=== PATIENT | female | born 1995 | race Caucasian/White ===

== ENCOUNTER 2023-01-23 00:28 | Emergency (ER) | payer BC, SELFPAY ==
[2023-01-23 00:32] VITALS: BP 116/94; PULSE 95; RESP 18; TEMP 36.7; O2SAT 99; BMI 26.5
--- NOTE | 2023-01-23 00:38 | ED.ABDPAIN1 ---
HPI - Abdominal Pain General Chief Complaint: Abdominal Pain Stated Complaint: ABDOMINAL PAIN Time Seen by Provider: 01/23/23 00:38 Mode of arrival: walk-in History of Present Illness HPI narrative: Presents to emergency department complaining of right abdomen and flank pain. Patient states she had her menses for 2 days. Slightly heavier than normal. She is not passing any clots. She states the pain is sharp radiates from her right lower quadrant to the right flank. She denies any trauma. She denies any vaginal discharge. She denies any hematuria, dysuria. She denies any fever, chills, cough, chest, shortness of breath. She has taken [id number] anti-inflammatories without any relief. Patient denies any dizziness, lightheadedness. She denies any nausea, vomiting, or diarrhea. Related Data Home Medications Medication Instructions Recorded Confirmed No Known Home Medications 01/23/23 01/23/23 Previous Rx's Medication Instructions Recorded ketorolac 10 mg tablet 10 mg PO Q8H PRN pain 1 day #14 01/23/23 tabs Allergies Allergy/AdvReac Type Severity Reaction Status Date / Time No Known Drug Allergies Allergy Verified 01/23/23 00:36 Review of Systems ROS Status of ROS 10 or more systems reviewed and unremarkable except as noted in history and below [facility] Social History Smoking status: Never smoker Exam Narrative Exam Narrative: Nurses notes and vital signs reviewed and patient is not hypoxic. General: Nontoxic, Well-appearing and in no apparent distress. Skin: Warm, dry, no pallor noted. No Rash Head: Normocephalic, atraumatic. Neck: Supple, non-tender. Eye: Pupils are equal, round and EOMI. No scleral icterus. Ears, Nose, Mouth, and Throat: TM clear, no posterior oropharynx erythema or nasal mucosal hypertrophy, uvula is mid-line Oral mucosa is moist Cardiovascular: Regular Rate and Rhythm without murmur, gallop or rub. Respiratory: No accessory muscle use or respiratory distress. Lungs are clear to auscultation, no wheezing, rales or rhonchi Chest Wall: no tenderness Back: No midline thoracic or lumbar vertebral tenderness. No CVA tenderness Musculoskeletal: normal ROM, no calf or popliteal tenderness, no lower extremity edema/swelling GI: Abdomen is soft, non-distended. Normal bowel sounds. No masses appreciated. Diffuse tenderness to palpationTo the right upper quadrant and right lower quadrant and left lower quadrant and left upper quadrant. No rebound, guarding, or rigidity noted. Neurological: A&O x4. No cranial nerve dysfunction observed. No truncal ataxia. Moves all extremities. Sensation intact. Psychiatric: Cooperative and interactive. Normal mood and affect. Constitutional Vital Signs, click to edit/add: Last Vital Signs Temp 98.1 F 01/23/23 00:32 Pulse 95 H 01/23/23 00:32 Resp 18 01/23/23 00:32 BP 116/94 H 01/23/23 00:32 Pulse Ox 99 01/23/23 00:32 O2 Del Method Room Air 01/23/23 00:32 Course Vital Signs Vital signs: Vital Signs Temperature 98.1 F 01/23/23 00:32 Pulse Rate 95 H 01/23/23 00:32 Respiratory Rate 18 01/23/23 00:32 Blood Pressure 116/94 H 01/23/23 00:32 Pulse Oximetry 99 01/23/23 00:32 Oxygen Delivery Method Room Air 01/23/23 00:32 Temperature 98.1 F 01/23/23 00:32 Pulse Rate 95 H 01/23/23 00:32 Respiratory Rate 18 01/23/23 00:32 Blood Pressure 116/94 H 01/23/23 00:32 Pulse Oximetry 99 01/23/23 00:32 Oxygen Delivery Method Room Air 01/23/23 00:32 MDM - Abdominal Pain MDM Narrative Medical decision making narrative: Patient had an IV established given IV fluids, and Toradol. test is negative. Lab studies are unremarkable. Patient's pain completely resolved after Toradol. Results were discussed with patient. Radiologist called to advise right adnexal questionable cysts. He advised ultrasound. Ultrasound came in and there was arterial flow to the ovaries. Patient has been feeling better. No longer has pain. She'll follow-up with Christophe in the morning. Given a prescription for Toradol. At this time the patient is without objective evidence of an acute process requiring hospitalization or inpatient management. The patient has remained hemodynamically stable. No additional indication for emergent studies at this time. I answered all questions. Discussed discharge instructions including standard anticipatory guidance and what should prompt a return to the emergency department, including if they get worse are not getting better or develops any new or concerning symptoms. I've given them specific time frame in which to follow-up, and who to follow-up with. The patient demonstrates understanding. Patient is nontoxic and stable for discharge with outpatient follow-up. This note was created with the assistance of a speech recognition program. Although the intention is to generate documents that actually reflects the content of the visit, no guarantees can be provided that every mistake has been identified and corrected by editing. Differential Diagnosis Differential diagnosis: Likely abdominal pain, acute appendicitis and endometriosis Lab Data Attestation: I reviewed the patient's lab results. Labs: Lab Results 01/23/23 Range/Units 01:10 WBC 6.1 (4.0-11.0) 10^3/uL RBC 4.27 (4.20-5.40) 10^6/uL Hgb 12.0 (12.0-16.0) g/dL Hct 36.3 (36.0-48.0) % MCV 85.0 (81.0-99.0) fL MCH 28.1 (26.7-34.0) pg MCHC 33.1 (29.9-35.2) g/dL RDW 13.4 (11.0-15.0) % Plt Count 281 (150-450) 10^3/uL MPV 9.9 (9.5-13.5) fL Neut % (Auto) 56.6 (43.0-75.0) % Lymph % (Auto) 28.5 (20.5-60.0) % [place] % (Auto) 10.8 (1.7-12.0) % Eos % (Auto) 3.3 (0.9-7.0) % Baso % (Auto) 0.5 (0.2-2.0) % Neut # (Auto) 3.5 (1.4-6.5) 10^3/uL Lymph # (Auto) 1.8 (1.2-3.8) 10^3/uL [place] # (Auto) 0.7 (0.3-0.8) 10^3/uL Eos # (Auto) 0.2 (0.0-0.7) 10^3/uL Baso # (Auto) 0.0 (0.0-0.1) 10^3/uL Abs Immat Gran (auto) 0.02 (0.00-0.03) 10^3/uL Imm/Tot Granulo (auto) 0.3 (0.0-0.5) % Sodium 141 (136-145) mmol/L Potassium 3.9 (3.5-5.1) mmol/L Chloride 106 (98-107) mmol/L Carbon Dioxide 26.3 (21.0-32.0) mmol/L Anion Gap 12.6 BUN 17.0 (7.0-18.0) mg/dL Creatinine 0.86 (0.55-1.02) mg/dL Est GFR ( Amer) >60 (>=60) Est GFR (Non-Af Amer) >60 (>=60) BUN/Creatinine Ratio 19.8 Glucose 103 (74-106) mg/dL Calcium 9.1 (8.5-10.1) mg/dL Total Bilirubin 0.4 (0.2-1.0) mg/dL AST 12 L (15-37) U/L ALT 8 L (14-59) U/L Alkaline Phosphatase 52 (46-116) U/L Total Protein 7.6 (6.4-8.2) g/dL Albumin 3.7 (3.4-5.0) g/dL Globulin 3.9 g/dL Albumin/Globulin Ratio 0.9 Lipase 53.0 L (73.0-393.0) U/L Urine Color Lt. yellow (YELLOW) Urine Clarity Clear (CLEAR) Urine pH 8.0 (5.0-9.0) Ur Specific [place] 1.010 (1.005-1.025) Urine Protein Negative (NEG/TRACE) mg/dL Urine Glucose (UA) Negative (NEGATIVE) mg/dL Urine Ketones Negative (NEGATIVE) mg/dL Urine Occult Blood Large A (NEGATIVE) Urine Nitrite Negative (NEGATIVE) Urine Bilirubin Negative (NEGATIVE) Urine Urobilinogen 0.2 (0.2-1.0) EU/dL Ur Leukocyte Esterase Negative (NEGATIVE) Urine RBC 10-20 A (0-2) #/HPF Urine WBC None seen (NONE SEEN) #/HPF Ur Squamous Epith Cells Few A (NONE/RARE) #/LPF Urine Crystals Seen A (None Seen) #/HPF Amorphous Sediment Moderate Urine Bacteria Small A (NONE SEEN) #/HPF Urine Casts None seen (NONE SEEN) #/LPF Urine Mucus None seen (NONE SEEN) Ur Culture Indicated? Yes Urine HCG, Qual Negative (NEGATIVE) Discharge Plan Discharge Chief Complaint: Abdominal Pain Clinical Impression: Dysmenorrhea, Abdominal pain Patient Disposition: Home, Self-Care Time of Disposition Decision: 04:42 Condition: Good Mode of Transportation: Private Vehicle Prescriptions / Home Meds: New ketorolac 10 mg tablet 10 mg PO Q8H PRN (Reason: pain) 1 Days Qty: 14 0RF No Action No Known Home Medications Instructions: Dysmenorrhea (ED), Abdominal Pain (ED) Stand Alone Forms: Portal Instructions Referrals: Zafar Saeed DO [Physician] - 1 week
[2023-01-23 01:20] LABS: Basophils Percent Auto 0.5 % (0.2-2.0); Eosinophils Absolute Auto 0.2 10^3/uL (0.0-0.7); Eosinophils Percent Auto 3.3 % (0.9-7.0); Hematocrit 36.3 % (36.0-48.0); Immature Granulocytes Abs Auto 0.02 10^3/uL (0.00-0.03); Immature Granulocytes Pct Auto 0.3 % (0.0-0.5); Lymphocytes Absolute Auto 1.8 10^3/uL (1.2-3.8); Lymphocytes Percent Auto 28.5 % (20.5-60.0); Mean Corpuscular HGB Conc 33.1 g/dL (29.9-35.2); Mean Corpuscular Hemoglobin 28.1 pg (26.7-34.0); Mean Platelet Volume 9.9 fL (9.5-13.5); Monocytes Absolute Auto 0.7 10^3/uL (0.3-0.8); Monocytes Percent Auto 10.8 % (1.7-12.0); Neutrophils Absolute Auto 3.5 10^3/uL (1.4-6.5); Neutrophils Percent Auto 56.6 % (43.0-75.0); Platelet Count 281 10^3/uL (150-450); Red Blood Count 4.27 10^6/uL (4.20-5.40); Red Cell Distribution Width 13.4 % (11.0-15.0); White Blood Count 6.1 10^3/uL (4.0-11.0)
[2023-01-23 01:21] LABS: Bilirubin Urine NEGATIVE (NEGATIVE); Blood Urine LARGE (NEGATIVE); Clarity Urine CLEAR (CLEAR); Color Urine LT. YELLOW (YELLOW); Glucose Urine UA NEGATIVE (NEGATIVE); Ketones Urine NEGATIVE (NEGATIVE); Leukocyte Esterase Urine NEGATIVE (NEGATIVE); Nitrite Urine NEGATIVE (NEGATIVE); Protein Urine NEGATIVE (NEG/TRACE); Urobilinogen Urine 0.2 EU/dL (0.2-1.0)
[2023-01-23 01:23] LABS: HCG Qualitative Urine* NEGATIVE (NEGATIVE); Urine Microscopic Indicated YES
[2023-01-23 01:31] LABS: Bacteria Urine SMALL #/HPF (NONE SEEN); Crystals Seen? Seen #/HPF (None Seen); Mucus Urine NONE SEEN (NONE SEEN); Squamous Epithelial Cell Urine FEW #/LPF (NONE/RARE); WBC Urine NONE SEEN #/HPF (NONE SEEN)
[2023-01-23 01:32] LABS: Amorphous Sediment Urine MODERATE; Cast Seen? NONE SEEN #/LPF (NONE SEEN); Urine Culture Indicated YES
--- NOTE | 2023-01-23 01:34 | CT_ITS ---
The [address] [address] Patient Name: JAMAAL CARPENTER MRN: [id number] date: 1995 Sex: F Assigned Patient Location: ER Current Patient Location: ER Accession/Order Number: [id number] Exam Date: 01/23/2023 01:47 Report Date: 01/23/2023 03:11 At the request of: JASSI DOS SANTOS Procedure: CT abdomen pelvis wo con EXAM: CT abdomen pelvis wo con HISTORY: Right flank pain , lower abdominal pain COMPARISON: None available TECHNIQUE: Multiple axial views CT abdomen pelvis without IV contrast. Coronal and sagittal reformats. FINDINGS: Visualized lung bases and cardiac apex are unremarkable. A 2.1 cm low-density oval solid mass located at the right posterior hepatic dome (image 20 series 3). Gallbladder, pancreas, spleen, adrenal glands, kidneys, and urinary bladder are unremarkable. A 4 mm calcified body at the right lower pelvis (image 107 series 3). The appendix is borderline prominent measuring up to 5.5 mm diameter. No discrete wall thickening or periappendiceal inflammatory stranding. 4.1 cm irregular heterogeneous right adnexal structure (image 95 series 3) posterior to the uterus. Moderate amount of stool and gas within the large bowel. No evidence for small bowel obstruction, large ascites, or free air. No acute bony abnormality. CT/CT abdomen pelvis wo con IMPRESSION: 1. 4.1 cm irregular heterogeneous right adnexal structure (image 95 series 3) posterior to the uterus. Differential includes right adnexal/ovarian cysts with debris, luteal cyst, hemorrhagic cyst, or other ovarian etiology. Correlate clinically. If there is corresponding right pelvic pain, then pelvic sonogram to further evaluate recommended. 2. The appendix is borderline prominent measuring up to 5.5 mm diameter. No discrete wall thickening or periappendiceal inflammatory stranding to suggest appendicitis. 3. A 2.1 cm low-density oval solid mass located at the right posterior hepatic dome (image 20 series 3). Nonemergency multiphase abdomen CT or MRI to evaluate for etiology. 4. A 4 mm calcified body at the right lower pelvis (image 107 series 3) favored to reflect pelvic phlebolith over ureteral stone. No hydronephrosis. Correlate for any hematuria. The first, second, and fourth impression findings communicated to and acknowledged by Dr. Jassi Stahl at approximately 3:06 AM 01/23/2023 by phone. The phone call was made by Dr. Oksana Metzger. Electronically authenticated by: OKSANA METZGER Date: 01/23/2023 03:11
[2023-01-23 01:44] LABS: Alanine Aminotransferase 8 U/L (14-59); Albumin Globulin Ratio 0.9; Albumin Level 3.7 g/dL (3.4-5.0); Alkaline Phosphatase 52 U/L (46-116); Anion Gap 12.6; Aspartate Amino Transferase 12 U/L (15-37); BUN Creatinine Ratio 19.8; Bilirubin Total 0.4 mg/dL (0.2-1.0); Calcium 9.1 mg/dL (8.5-10.1); Carbon Dioxide 26.3 mmol/L (21.0-32.0); Chloride 106 mmol/L (98-107); Estimated GFR (African America >60 (>=60); Estimated GFR (Non-African Ame >60 (>=60); Globulin 3.9 g/dL; Glucose 103 mg/dL (74-106); Potassium 3.9 mmol/L (3.5-5.1); Sodium 141 mmol/L (136-145); Total Protein 7.6 g/dL (6.4-8.2)
[2023-01-23] MEDS: KETOROLAC TROMETHAMINE 30 MG/ML VIAL IVP (01:55)
[2023-01-23] MEDS: 0.9 % SODIUM CHLORIDE 1,000 ML 999 ML IV (01:55)
--- NOTE | 2023-01-23 03:16 | US_ITS ---
The [address] [address] Patient Name: JAMAAL CARPENTER MRN: [id number] date: 1995 Sex: F Assigned Patient Location: ER Current Patient Location: ER Accession/Order Number: [id number] Exam Date: 01/23/2023 04:10 Report Date: 01/23/2023 05:52 At the request of: JASSI DOS SANTOS Procedure: US pelvis w/ transvaginal EXAM: US pelvis w/ transvaginal HISTORY: Pelvic pain; assess for ovarian torsion. COMPARISON: CT abdomen/pelvis dated 01/23/2023. TECHNIQUE: Grayscale and color Doppler transabdominal and transvaginal sonographic imaging of the pelvis in longitudinal and transverse planes. FINDINGS: Uterus: 8.4 x 4.1 x 5.2 cm Right ovary: 2.6 x 3.5 x 4.5 cm Left ovary: 3.9 x 2.0 x 3.4 cm Uterus: Anteverted uterus is normal size. The endometrial stripe is normal thickness measuring 0.4 cm in AP dimension. The myometrial parenchymal echogenicity is unremarkable. There is no myometrial mass lesion. Right ovary: Normal size with normal parenchymal echogenicity. There are follicles within the right ovary. There is a 1.6 x 0.8 x 1.5 cm involuting follicle containing low-level internal echoes within the right ovary. The 1.9 x 1.8 x 2.3 cm isoechoic area containing small follicles and the 0.7 x 0.5 x 0.6 cm slightly hyperechoic area measured within the right ovary are most likely ovarian parenchyma. An arterial waveform tracing was obtained. No venous waveform tracing was obtained. Given this limitation, there are no sonographic findings of right ovarian torsion. The right adnexa region is unremarkable. Left ovary: Normal size with normal parenchymal echogenicity. There are small follicles within the left ovary. An arterial waveform tracing was obtained. No venous waveform tracing was obtained. Given this limitation, there are no sonographic findings of left ovarian torsion. There is a 1.5 x 0.8 x 1.7 cm isoechoic nodule within the left ovary possibly an involuted corpus luteum cyst with diffuse internal echoes. There is no associated vascularity within this. The left adnexa region is unremarkable. Cul-de-sac: There is no free fluid within the cul-de-sac. US/US pelvis w/ transvaginal IMPRESSION: There is no evidence of ovarian torsion bilaterally however venous waveform tracings were not obtained. There is no ovarian enlargement or heterogeneity of the parenchymal echogenicity and an arterial waveform tracing was documented. The endometrial stripe is normal thickness measuring 0.4 cm in AP dimension. There is a 1.6 x 0.8 x 1.5 cm involuting follicle containing low-level internal echoes within the right ovary. There is a 1.5 x 0.8 x 1.7 cm isoechoic nodule within the left ovary possibly an involuted corpus luteum cyst with diffuse internal echoes. There is no associated internal vascularity. Electronically authenticated by: LUIZ MORLEY Date: 01/23/2023 05:52
== END 2023-01-23 06:53 | disposition home or self-care (01) ==
PROVIDERS: Emergency Provider Emergency Medicine
DX: N94.6 Dysmenorrhea, unspecified (principal); R10.9 Unspecified abdominal pain
CPT/HCPCS: 36415; 74176; 76830; 76856; 80053; 81001; 83690; 84703; 85025; 87086; 96374; 99285

== ENCOUNTER 2023-09-10 20:40 | Outpatient (REF) | payer OTHER, SELFPAY ==
[2023-09-16 13:07] LABS: Age Gdln ACOG Testing Note (.); IGP, rfx Aptima HPV ASCU Note (.)
== END 2023-09-10 20:41 | disposition home or self-care (01) ==
LOC: LAB 20:40
PROVIDERS: Visit Provider Physician Assistant
DX: Z01.419 Encounter for gynecological examination (general) (routine) without abnormal findings (principal)
CPT/HCPCS: G0145

== ENCOUNTER 2023-12-16 14:54 | Outpatient (OUT) | payer OTHER, SELFPAY ==
--- NOTE | 2023-12-16 15:01 | US_ITS ---
[address] [address] Patient Name: JAMAAL CARPENTER MRN: [id number] date: 1995 Sex: F Assigned Patient Location: US Current Patient Location: Accession/Order Number: [id number] Exam Date: 12/16/2023 15:01 Report Date: 12/17/2023 06:56 At the request of: EMI NUGENT Procedure: US pelvis transvaginal EXAMINATION: US pelvis transvaginal HISTORY: OVARIAN CYST ; intermittent pelvic pain COMPARISON: Ultrasound pelvis 01/23/2023 TECHNIQUE: Transabdominal and/or transvaginal sonographic examination was performed as indicated by examination type. FINDINGS: UTERUS: Normal size and appearance. Uterus size: 8.3 x 3.3 x 5.7 cm ENDOMETRIUM: Normal homogeneous appearance. Endometrial thickness: 7 mm RIGHT OVARY: Slightly prominent and contains multiple follicles. Located posterior to uterus and possibly fused to the left ovary. Duplex Doppler demonstrates normal waveform and flow; resistive index 0.6. Ovary size: 3.6 x 3.3 x 4.1 cm LEFT OVARY: Slightly prominent and contains multiple follicles. Located posterior to uterus and possibly fused to the right ovary. Duplex Doppler demonstrates normal waveform and flow; resistive index 0.6. Ovary size: 5.0 x 2.2 x 4.4 cm CUL-DE-SAC: Unremarkable. No significant free fluid. BLADDER: Unremarkable. OTHER: None. US/US pelvis transvaginal IMPRESSION: 1. No acute or specific findings to account for patient's symptoms. 2. Both ovaries are located posterior to the uterus with no appreciable separation between them; artifactual versus developmental fusion. Electronically authenticated by: VIRGILIO ANTHONY Date: 12/17/2023 06:56
== END 2023-12-16 14:55 | disposition home or self-care (01) ==
LOC: US 14:54
PROVIDERS: Visit Provider Obstetrics & Gynecology
DX: N83.209 Unspecified ovarian cyst, unspecified side (principal)
CPT/HCPCS: 76830

== ENCOUNTER 2024-09-15 20:19 | Outpatient (REF) | payer BC, SELFPAY ==
[2024-09-21 12:11] LABS: Age Gdln ACOG Testing Note (.); IGP, rfx Aptima HPV ASCU Note (.)
== END 2024-09-15 20:20 | disposition home or self-care (01) ==
LOC: LAB 20:19
PROVIDERS: Visit Provider Nurse Practitioner Family
DX: Z01.419 Encounter for gynecological examination (general) (routine) without abnormal findings (principal)
CPT/HCPCS: 88175